=== PATIENT | male | born 1990 | race Caucasian/White ===

== ENCOUNTER 2018-01-23 18:20 | Emergency (ER) | payer BC, OTHER ==
[2018-01-23 19:37] LABS: ABS Basophils 0.1 10^3/ul (0-0.2); ABS Eosinophils 0 10^3/ul (0-0.6); ABS Lymphocytes 1.9 10^3/ul (1.0-4.8); ABS Monocytes 0.8 10^3/ul (0-0.8); ABS Neutrophils 12.8 10^3/ul (1.5-7.7); ABS Nucleated RBC 0 10^3/ul; Eosinophil % 0.1 %; Hematocrit 42 % (42-52); Hemoglobin 14.6 g/dl (14.0-18.0); Mean Corpuscular HGB Conc 35 g/dl (31-36); Mean Corpuscular Hemoglobin 32 pg (27-31); Mean Corpuscular Volume 91 fL (80-94); Nucleated Red Blood Cells % 0.2; Platelet Count 325 10^3/ul (150-450); Red Blood Count 4.57 10^6/ul (4.00-5.40); Red Cell Distribution Width 12 % (10.5-15); White Blood Count 15.6 10^3/ul (3.5-10.8)
--- NOTE | 2018-01-23 21:16 | ED ---
Lower Extremity - HPI Summary HPI Summary: Patient complains of fever, and left knee swelling, pain, redness starting Tuesday morning. Denies trauma, history of gout, fever, cough, sore throat, CP, SOB, N/V/D, abdominal pain, change in urine, change in BM. Medical history is none. Patient states he took Tylenol this morning. - History of Current Complaint Chief Complaint: EDExtremityLower Stated Complaint: LT KNEE SWOLLEN Time Seen by Provider: 01/23/18 18:39 Hx Obtained From: Patient Mechanism Of Injury: Unknown Onset of Pain: Days Onset/Duration: Days Severity Initially: Moderate Severity Currently: Moderate Pain Intensity: 6 Pain Scale Used: 0-10 Numeric Timing: Constant Location: Is Discrete @ Character Of Pain: Aching, Throbbing Associated Signs And Symptoms: Positive: Swelling, Knee Pain Aggravating Factor(s): Ambulation, Movement, Weight Bearing Alleviating Factor(s): Rest Able to Bear Weight: Yes - Allergies/Home Medications Allergies/Adverse Reactions: Allergies Allergy/AdvReac Type Severity Reaction Status Date / Time No Known Allergies Allergy Verified 05/18/12 14:42 PMH/Surg Hx/FS Hx/Imm Hx Endocrine/Hematology History: Denies: Hx Anticoagulant Therapy Cardiovascular History: Denies: Hx Cardiac Arrest History: Denies: Hx Dialysis Neurological History: Denies: Hx CVA Infectious Disease History: No Infectious Disease History: Denies: Traveled Outside the [place] in Last 30 Days - Social History Alcohol Use: Occasionally Substance Use Type: Reports: None Smoking Status (MU): Never Smoked Tobacco Review of Systems Positive: Fever Eyes: Negative ENT: Negative Cardiovascular: Negative Respiratory: Negative Gastrointestinal: Negative Genitourinary: Negative Positive: Arthralgia Skin: Negative Neurological: Negative Psychological: Normal All Other Systems Reviewed And Are Negative: Yes Physical Exam - Summary Physical Exam Summary: Positive erythema, extra warmth, swelling to the left knee. Positive peripatellar effusion. PMS intact distally. Full range of motion of left knee. Nontender. Triage Information Reviewed: Yes Vital Signs On Initial Exam: Initial Vitals Temp Pulse Resp BP Pulse Ox 102.8 F 124 16 141/82 96 01/23/18 18:22 01/23/18 18:22 01/23/18 18:22 01/23/18 18:22 01/23/18 18:22 Vital Signs Reviewed: Yes Appearance: Positive: Well-Appearing Skin: Positive: Warm Head/Face: Positive: Normal Head/Face Inspection Eyes: Positive: Normal Neck: Positive: Supple Respiratory/Lung Sounds: Positive: Clear to Auscultation Cardiovascular: Positive: Normal Abdomen Description: Positive: Nontender Musculoskeletal: Positive: Normal Neurological: Positive: Normal Psychiatric: Positive: Normal AVPU Assessment: Alert - Jeffery Coma Scale Best Eye Response: 4 - Spontaneous Best Motor Response: 6 - Obeys Commands Best Verbal Response: 5 - Oriented Coma Scale Total: 15 Diagnostics - Vital Signs Vital Signs Temp Pulse Resp BP Pulse Ox 01/23/18 18:45 111 97 01/23/18 18:22 102.8 F 124 16 141/82 96 - Laboratory Lab Results: Lab Results 01/23/18 01/23/18 01/23/18 Range/Units 19:08 19:08 19:08 WBC 15.6 H (3.5-10.8) 10^3/ul RBC 4.57 (4.00-5.40) 10^6/ul Hgb 14.6 (14.0-18.0) g/dl Hct 42 (42-52) % MCV 91 (80-94) fL MCH 32 H (27-31) pg MCHC 35 (31-36) g/dl RDW 12 (10.5-15) % Plt Count 325 (150-450) 10^3/ul MPV 8.0 (7.4-10.4) fL Neut % (Auto) 82.1 % Lymph % (Auto) 12.0 % [place] % (Auto) 5.1 % Eos % (Auto) 0.1 % Baso % (Auto) 0.7 % Absolute Neuts (auto) 12.8 H (1.5-7.7) 10^3/ul Absolute Lymphs (auto) 1.9 (1.0-4.8) 10^3/ul Absolute Monos (auto) 0.8 (0-0.8) 10^3/ul Absolute Eos (auto) 0 (0-0.6) 10^3/ul Absolute Basos (auto) 0.1 (0-0.2) 10^3/ul Absolute Nucleated RBC 0 10^3/ul Nucleated RBC % 0.2 ESR 59 H (0-14) mm/Hr Sodium 134 L (135-145) mmol/L Potassium 3.7 (3.5-5.0) mmol/L Chloride 100 L (101-111) mmol/L Carbon Dioxide 24 (22-32) mmol/L Anion Gap 10 (2-11) mmol/L BUN 14 (6-24) mg/dL Creatinine 1.02 (0.67-1.17) mg/dL Est GFR ( Amer) 107.7 (>60) Est GFR (Non-Af Amer) 89.0 (>60) BUN/Creatinine Ratio 13.7 (8-20) Glucose 185 H (70-100) mg/dL Lactic Acid 1.2 (0.5-2.0) mmol/L Calcium 9.7 (8.6-10.3) mg/dL Total Bilirubin 0.50 (0.2-1.0) mg/dL AST 12 L (13-39) U/L ALT 18 (7-52) U/L Alkaline Phosphatase 47 (34-104) U/L C-Reactive Protein 94.10 H (<8.01) mg/L Total Protein 7.6 (6.4-8.9) g/dL Albumin 4.5 (3.2-5.2) g/dL Globulin 3.1 (2-4) g/dL Albumin/Globulin Ratio 1.5 (1-3) Result Diagrams: 01/23/18 19:08 01/23/18 19:08 Lab Statement: Any lab studies that have been ordered have been reviewed, and results considered in the medical decision making process. Lower Extremity Course/Dx - Course Course Of Treatment: Patient complains of fever, and left knee swelling, pain, redness starting Tuesday morning. Denies trauma, history of gout, fever, cough, sore throat, CP, SOB, N/V/D, abdominal pain, change in urine, change in BM. Medical history is none. Patient states he took Tylenol this morning. Physical exam:Positive erythema, extra warmth, swelling to the left knee. Positive peripatellar effusion. PMS intact distally. Full range of motion of left knee. Nontender. Discussed patient with Dr. Castellon orthopedics regarding possibility of septic prepatellar bursitis. WBC 15.6.. ESR 59. CRP 94. Fever of 102.8. Tachycardic up to 124. X-ray negative. Patient has full range of motion and is ambulatory. Dr. Castellon offered 2 options: Admit to her if patient looked bad, and if patient appeared stable discharge after Ancef and Toradol with follow-up in clinic tomorrow and prescription for Bactrim. Patient no longer febrile, heart rate around 103, otherwise looks very healthy. Patient agreed to follow up in clinic with Dr. Castellon tomorrow and to take Bactrim. Patient understands and approves of plan. - Diagnoses Provider Diagnoses: Prepatellar bursitis Discharge - Sign-Out/Discharge Documenting (check all that apply): Patient Departure - Discharge Plan Condition: Stable Disposition: HOME Prescriptions: Ibuprofen 800 mg PO TID 7 Days #21 tablet Sulfamethox/Trimethoprim DS* [Bactrim DS 800/160 TAB*] 1 tab PO BID 7 Days #14 tab Patient Education Materials: Knee Bursitis (ED) Referrals: Tong Billings MD [Primary Care Provider] - Guille Castellon MD [Medical Doctor] - Additional Instructions: Rest left knee. Take ibuprofen 800mg three times a day. Take antibiotics as directed. Follow-up with Dr. Castellon orthopedics in clinic tomorrow. Return to the ED for any new or worsening symptoms - Billing Disposition and Condition Condition: STABLE Disposition: Home
[2018-01-23] MEDS ORDERED: ceFAZolin 500 MG VIAL(*) 500 MG VIAL IM ONE (21:26)
[2018-01-23] MEDS ORDERED: Ketorolac INJ* 60 MG/2 ML VIAL IM ONE (21:27)
[2018-01-23] MEDS ORDERED: Ketorolac INJ* 30 MG/ML 1 ML VIAL IV ONE (22:08)
[2018-01-23 22:18] VITALS: BP 129/76
== END 2018-01-23 22:18 | disposition home or self-care (01) ==
LOC: ED 18:20
DX: M70.42 Prepatellar bursitis, left knee (principal)
CPT/HCPCS: 36415; 80053; 83605; 85025; 85652; 86140; 86618; 87040; 96372; 96374; 99283; J0690; J1885

== ENCOUNTER 2018-01-26 22:36 | Emergency (ER) | payer BC ==
[2018-01-26] MEDS ORDERED: Lidocaine 2% W/EPI 1:100,000* 20 ML MDV INJ ONE (23:51)
--- NOTE | 2018-01-26 23:51 | ED ---
Lower Extremity - HPI Summary HPI Summary: A 27 y/o male accompanied by family presents to ED c/o knee pain. Currently, the patient is experiencing left knee pain reaching 4/10 in severity. As per triage, "Patient reports left knee pain and swelling. Patient reports [facility] then here for same and given ABX. Patient states pain/swelling improved then became worse". According to the patient, the pain started last Tuesday. He came into [facility] on Tuesday night where he was discharged and diagnosed with Prepatellar bursitis. He followed up with Orthopedics and agreed with the diagnosis. He was placed on Bactrim antibiotics, however, he stated that today it has been swelling up much more and has exhibited a fever the past couple nights. Additionally, there is more erythema. He has been on Bactrim for 3 days. He denies any injury. - History of Current Complaint Chief Complaint: EDExtremityLower Stated Complaint: LT KNEE PAIN Time Seen by Provider: 01/26/18 23:36 Hx Obtained From: Patient Mechanism Of Injury: Unknown Onset of Pain: Immediate Onset/Duration: Still Present Severity Initially: Moderate Severity Currently: Moderate Pain Intensity: 4 Pain Scale Used: 0-10 Numeric Timing: Constant, Lasting Days Location: Is Discrete @ - LEFT KNEE Associated Signs And Symptoms: Positive: Swelling, Redness, Knee Pain Aggravating Factor(s): Other - PALPATION Alleviating Factor(s): Nothing - Allergies/Home Medications Allergies/Adverse Reactions: Allergies Allergy/AdvReac Type Severity Reaction Status Date / Time No Known Allergies Allergy Verified 05/18/12 14:42 PMH/Surg Hx/FS Hx/Imm Hx Endocrine/Hematology History: Denies: Hx Anticoagulant Therapy Cardiovascular History: Denies: Hx Cardiac Arrest History: Denies: Hx Dialysis Neurological History: Denies: Hx CVA - Surgical History Surgery Procedure, Year, and Place: no prior surgeries. Infectious Disease History: No Infectious Disease History: Denies: Traveled Outside the [place] in Last 30 Days - Family History Known Family History: Negative: Hypertension - Social History Alcohol Use: Occasionally Substance Use Type: Reports: None Smoking Status (MU): Never Smoked Tobacco Review of Systems Negative: Fever Positive: Other - POSITIVE: LEFT KNEE PAIN Positive: Other - POSITIVE: SWELLING AND ERYTHEMA OF LEFT KNEE All Other Systems Reviewed And Are Negative: Yes Physical Exam - Summary Physical Exam Summary: Appearance: Well appearing, no pain distress Skin: warm, dry, reflects adequate perfusion. Head/face: normal Eyes: EOMI, VEL ENT: normal Neck: supple, non-tender Respiratory: CTA, breath sounds present Cardiovascular: RRR, pulses symmetrical Abdomen: non-tender, soft Musculoskeletal: normal, strength/ROM intact. Tenderness, swelling, and erythema in right knee. No neurovascular deficit. Neuro: normal, sensory motor intact, A&Ox3 Triage Information Reviewed: Yes Vital Signs On Initial Exam: Initial Vitals Temp Pulse Resp BP Pulse Ox 97.3 F 92 20 144/75 97 01/26/18 22:38 01/26/18 22:38 01/26/18 22:38 01/26/18 22:38 01/26/18 22:38 Vital Signs Reviewed: Yes Diagnostics - Vital Signs Vital Signs Temp Pulse Resp BP Pulse Ox 01/26/18 22:38 97.3 F 92 20 144/75 97 - Laboratory Result Diagrams: 01/26/18 23:58 01/26/18 23:58 Lab Statement: Any lab studies that have been ordered have been reviewed, and results considered in the medical decision making process. - Radiology KNEE XR Radiology Interpretation Completed By: ED Physician - NO FRACTURE. PENDING OFFICIAL REPORT. Lower Extremity Course/Dx - Course Course Of Treatment: A 27 y/o male accompanied by family presents to ED c/o knee pain. Currently, the patient is experiencing left knee pain reaching 4/10 in severity. As per triage, "Patient reports left knee pain and swelling. Patient reports being [facility] here for same and given ABX. Patient states pain/swelling improved then became worse". According to the patient, the pain started last Tuesday. He came into [facility] on Tuesday night where he was discharged and diagnosed with Prepatellar bursitis. He followed up with Orthopedics and agreed with the diagnosis. He was placed on Bactrim antibiotics , however, he stated that today it has been swelling up much more and has exhibited a fever the past couple nights. Additionally, there is more erythema. He has been on Bactrim for 3 days. He denies any injury. Physical exam revealed tenderness, swelling, and erythema in right knee. No neurovascular deficit. A knee XR revealed no fracture. Hematology and Chemistry was done. Labs significant for WBC 13.3, Hgb 13.9, MCH 32, Hct 40, and Glucose 105. In the ED course, the patient recieved Lidocaine and Xylocaine. Patient will be discharged with a diagnosis of Prepatellar Bursitis and knee pain. No indication for a tap at present. wbc is trending down. advised to follow up with ortho in the morning anfd follow their recommendations. - Diagnoses Differential Diagnosis/HQI/PQRI: Positive: Bursitis, Cellulitis Provider Diagnoses: Prepatellar bursitis, Knee pain Discharge - Sign-Out/Discharge Documenting (check all that apply): Patient Departure - DISCHARGE - Discharge Plan Condition: Stable Disposition: HOME Patient Education Materials: Knee Pain (ED) Referrals: Tong Billings MD [Primary Care Provider] - 3 Days Cha Hartmann MD [Medical Doctor] - 3 Days Additional Instructions: FOLLOW UP WITH ORTHOPEDICS IN 2-3 DAYS RETURN TO ED FOR ANY NEW OR WORSENING SYMPTOMS. - Billing Disposition and Condition Condition: STABLE Disposition: Home - Attestation Statements Document Initiated by Michelle: Yes Documenting Scribe: Torsten Mooney Provider For Whom Michelle is Documenting (Include Credential): Eugene Dickinson MD Scribe Attestation: Torsten Stapleton scribed for Eugene Dickinson MD on 01/27/18 at 0147. Scribe Documentation Reviewed: Yes Provider Attestation: The documentation as recorded by the Torsten hook accurately reflects the service I personally performed and the decisions made by , Eugene Dickinson MD Status of Scribe Document: Viewed
[2018-01-27] MEDS ORDERED: Lidocaine 2% EPI 1:200000 MPF*10-20 ML VIAL ONE (00:02)
[2018-01-27 00:06] LABS: ABS Basophils 0.1 10^3/ul (0-0.2); ABS Eosinophils 0.1 10^3/ul (0-0.6); ABS Lymphocytes 3.1 10^3/ul (1.0-4.8); ABS Monocytes 1.2 10^3/ul (0-0.8); ABS Neutrophils 8.9 10^3/ul (1.5-7.7); ABS Nucleated RBC 0 10^3/ul; Eosinophil % 1.1 %; Hematocrit 40 % (42-52); Hemoglobin 13.9 g/dl (14.0-18.0); Lymphocyte % 23.1 %; Mean Corpuscular HGB Conc 35 g/dl (31-36); Mean Corpuscular Hemoglobin 32 pg (27-31); Mean Corpuscular Volume 91 fL (80-94); Mean Platelet Volume 7.4 fL (7.4-10.4); Nucleated Red Blood Cells % 0; Platelet Count 418 10^3/ul (150-450); Red Blood Count 4.39 10^6/ul (4.00-5.40); Red Cell Distribution Width 12 % (10.5-15); White Blood Count 13.3 10^3/ul (3.5-10.8)
[2018-01-27 00:15] LABS: INR 1.11 (0.77-1.02)
[2018-01-27 00:23] LABS: EGFR Non-African American 83.3 (>60)
[2018-01-27 01:39] VITALS: BP 138/84
== END 2018-01-27 01:38 | disposition home or self-care (01) ==
LOC: ED 22:36
DX: M70.42 Prepatellar bursitis, left knee (principal)
CPT/HCPCS: 36415; 80053; 85025; 85610; 85730; 87040; 99282

== ENCOUNTER 2018-01-27 09:42 | Inpatient (IN) | payer BC ==
--- OUTSIDE RECORDS SUMMARY | 2018-01-27 10:00 | XMS REPORT | Continuity of Care Document ---
:1990 External Reference #:[id number] Author Name Kanwal Ely Care Team Providers Name Role Phone Tong Billings MD Primary Care Physician Unavailable Payers Type Date Identification Numbers Payment Provider Subscriber Policy Number: [id number] [employer] Santhosh Beatty PayID: [id number] [address] [address] [place] [address] Advance Directives Description No Information Available Problems Description No Information Family History Date Family Member(s) Problem(s) Comments General No Current Problems Social History Type Date Description Comments Sex Unknown Lives With Spouse 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 ETOH Use Currently consumes alcohol Tobacco Use Start: Unknown Patient has never smoked Smoking Status Reviewed: 01/24/18 Patient has never smoked Exercise Type/Frequency Negative For Exercises regularly Allergies, Adverse Reactions, Alerts Description No Known Drug Allergies Medications Description No Active Medications Immunizations Description No Information Available Vital Signs Date Vital Result Comment 01/24/2018 11:03am Height 70 inches 5'10" Weight 240.25 lb Heart Rate 88 /min BP Systolic Sitting 102 mmHg BP Diastolic Sitting 78 mmHg Body Temperature 99.3 F Pain Level 1 BMI (Body Mass Index) 34.5 kg/m2 Results Description No Information Available Procedures Description No Information Available Encounters Description No Information Available Plan of Treatment 01/24/2018 - Guille Castellon, [id number] Prepatellar bursitis, left kneeFollow up: Follow up: Tuesday or
--- OUTSIDE RECORDS SUMMARY | 2018-01-27 10:00 | XMS REPORT | Continuity of Care Document ---
:1990 External Reference #:[id number] Author Name Christine Godinez Care Team Providers Name Role Phone Tong Billings MD Primary Care Physician Unavailable Payers Type Date Identification Numbers Payment Provider Subscriber Policy Number: [id number] [employer] Santhosh Beatty PayID: [id number] [address] [address] [place] [address] Advance Directives Description No Information Available Problems Description No Information Family History Date Family Member(s) Problem(s) Comments General No Current Problems Social History Type Date Description Comments Sex Unknown Lives With Spouse 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 No Active 01/25/20 Hx Unknown Medications - 01/28/20 18 Bactrim Hx Tablets 400-80mg once a day Unknown - 01/27/20 18 Immunizations Description No Information Available Vital Signs Date Vital Result Comment 01/27/2018 8:51am Height 70 inches 5'10" Heart Rate 88 /min BP Systolic 118 mmHg BP Diastolic 70 mmHg Body Temperature 99.8 F Pain Level 4 01/24/2018 11:03am Height 70 inches 5'10" Weight 240.25 lb Heart Rate 88 /min BP Systolic Sitting 102 mmHg BP Diastolic Sitting 78 mmHg Body Temperature 99.3 F Pain Level 1 BMI (Body Mass Index) 34.5 kg/m2 Results Description No Information Available Procedures Date Code Description Status 01/27/2018 Inject/Drain Joint/Bursa Major W/O US Completed Encounters Description No Information Available Plan of Treatment Future Appointment(s):01/31/2018 11:15 am - Guille Castellon MD at [facility].01/27/2018 - Guille Castellon, [id number] Prepatellar bursitis, left kneeFollow up:Follow up: at [id number] Cellulitis of left lower limbNew Labs:Body Fluid C&S, Ordered: 01/27/18ungal Cult Other Sources, Ordered: 01/27/18
[2018-01-27] MEDS ORDERED: Ondansetron INJ* 2 MG/ML VIAL IV PRN (10:52)
[2018-01-27] MEDS ORDERED: Vancomycin per Pharmacy* NOTE FOLLOW UP PRN (11:16)
[2018-01-27 11:34] LABS: ABS Basophils 0.1 10^3/ul (0-0.2); ABS Eosinophils 0.1 10^3/ul (0-0.6); ABS Lymphocytes 2.2 10^3/ul (1.0-4.8); ABS Neutrophils 9.3 10^3/ul (1.5-7.7); ABS Nucleated RBC 0 10^3/ul; Eosinophil % 0.7 %; Hematocrit 39 % (42-52); Hemoglobin 13.7 g/dl (14.0-18.0); Lymphocyte % 17.3 %; Mean Corpuscular HGB Conc 35 g/dl (31-36); Mean Corpuscular Hemoglobin 32 pg (27-31); Mean Corpuscular Volume 91 fL (80-94); Mean Platelet Volume 7.1 fL (7.4-10.4); Nucleated Red Blood Cells % 0; Platelet Count 376 10^3/ul (150-450); Red Blood Count 4.27 10^6/ul (4.00-5.40); Red Cell Distribution Width 13 % (10.5-15); White Blood Count 12.6 10^3/ul (3.5-10.8)
[2018-01-27] MEDS ORDERED: Vancomycin(*) 1,750 MG in NS 0.9% 500 ML* 500 ML IVPB ONE (12:00)
[2018-01-27] MEDS ORDERED: HYDROcodone/ACETAMIN 5-325 MG* 1 TAB PO PRN (12:29)
--- NOTE | 2018-01-27 13:06 | HP ---
AMENDED REPORT NOW INCLUDES DESIGNATED COSIGNER ADMISSION HISTORY AND PHYSICAL: DATE OF ADMISSION: 01/27/18 ATTENDING PHYSICIAN: Dr. Castellon.* (DICTATED BY KEE FRANKLIN) CHIEF COMPLAINT: Left anterior knee pain and swelling. 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 He states that around he developed some swelling, redness, and pain to the anterior aspect of his knee, but thought it was just irritated, but by the weekend had more pain and had developed fever and chills and presented to the [facility] on in which he was sent to the emergency department for evaluation where he received IV Ancef. He did feel that there was some improvement in his pain and his vital signs were stable. He was therefore discharged on Bactrim DS 800/160 mg p.o. b.i.d. for 7 days and instructed to follow up with Dr. Castellon in the office. He states that his pain, swelling, and redness did not improve significantly. He was seen in the office by Dr. Castellon this morning, 01/27/18, where he underwent aspiration of the prepatellar bursa of the left knee and admitted to the hospital for IV antibiotics and further workup. The patient has not had recent fever or chills within the last 24 hours. Otherwise, he feels well. He has not had any recent illnesses. He denies other constitutional symptoms at the time of his admission. PAST MEDICAL HISTORY: Benign with no prior medical problems. MEDICATIONS: He takes no regular medications, but has been taking ibuprofen 800 mg 2 to 3 times daily for the knee pain and recently as above was on the Bactrim DS b.i.d. ALLERGIES: He denies any known drug allergies. 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 He lives with his girlfriend. He drinks very minimally, maybe 6 drinks per week. No illicit drug use. He does not use tobacco products. REVIEW OF SYSTEMS: He has had some fever and chills within the last several days, but denies fever or chills upon admission currently. He denies loss of consciousness, lightheadedness, dizziness, shortness of breath, chest pain, palpitations, gastrointestinal or genitourinary symptoms. PHYSICAL EXAMINATION GENERAL: He is pleasant and cooperative, alert and oriented x3, in no acute distress. VITAL SIGNS: Temperature is 98.6, pulse 86, respiratory rate 16, O2 sat 98% on room air, blood pressure 154/67. HEENT: Pupils equal, round, reactive to light. EOMI. NECK: Supple, nontender. No masses. LUNGS: Clear to auscultation. HEART: Regular rate and rhythm. No murmur auscultated. ABDOMEN: Soft and nontender. Normoactive bowel sounds x4 quadrants. EXTREMITIES: Upper extremities within normal limits. Lower extremities: Left lower extremity showed some prepatellar swelling and mild erythema, mild warmth. Minimal tenderness to palpation. His motion is limited to about 90 degrees of flexion, limited by anterior swelling and pain. His calf is soft and nontender. He has active dorsiflexion of his left ankle. He has active straight leg raise. His pedal pulse is 2+ distally. LABORATORY DATA: Recent laboratory studies drawn this morning, 01/27/18, indicated elevated white count of 12.6, hemoglobin 13.7, hematocrit 39. His C- reactive protein is elevated at 114.72, which has increased from 94.10 on 01/23/18. ESR pending. IMPRESSION: Infected prepatellar bursa, left knee. PLAN: The patient is admitted to the service of Dr. Castellon. He is currently n.p.o. awaiting culture results. Vancomycin is started upon admission. He may require I and D. Definitive plan to be determined by Dr. Castellon. KEE FRANKLIN [id number]/[facility] #: [id number] MIMI
[2018-01-27] MEDS: Ibuprofen TAB* 800 MG PO SCH ×2 (14:14→19:49)
[2018-01-27] MEDS: Vancomycin(*) 1,250 MG in NS 0.9% 250 ML* 250 ML IVPB SCH (18:58)
--- NOTE | 2018-01-27 22:14 | CONS ---
CONSULTATION REPORT: DATE OF CONSULT: 01/27/18 TIME OF CONSULTATION: 10 o'clock a.m. CONSULTING SERVICE: Orthopedic Surgery. CHIEF COMPLAINT: Left knee pain. HISTORY OF PRESENT ILLNESS: This is a 27-year-old man with no medical history, who was admitted to the orthopedic surgery service this morning for prepatellar bursitis with cellulitis. He has first noticed swelling last Tuesday when he went to work, but he did not take much of it. He worked through the day and continued to work, but on Tuesday, the swelling and pain got worse, so he went to [facility], who sent him to the ED that was on 01/23/18 and he was discharged with Bactrim. Then, on 01/26/18, he went to see Dr. Castellon in the office and she was concerned that the erythema was worsening, so she sent him to the hospital for IV antibiotics having failed Bactrim. Santhosh reports fevers at home up to 101.1 on Tuesday and again yesterday, he has been taking ibuprofen for pain. He has been able to walk and he has continued to work until yesterday. 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 PAST MEDICAL HISTORY: None. PAST SURGICAL HISTORY: None. ALLERGIES: None. FAMILY HISTORY: Diabetes in his grandparents. SOCIAL HISTORY: He does not smoke cigarette. He drinks about 6 beers per week. He works at [employer] as a greenhouse technician. He uses no illicit drugs. REVIEW OF SYSTEMS: He notes the fever, knee pain and swelling, and cough. Remainder of the 14-point review of systems is negative. PHYSICAL EXAM: Temperature 98.6, heart rate 86, respiratory rate 16, pulse ox 98% on room air, and blood pressure 154/67. General: Alert, well-appearing young man, in no distress. He is nontoxic appearing. HEENT: Pupils are 3 mm bilaterally, reactive to light. Oral mucosa is moist. Neck: No JVP. No cervical adenopathy. Chest: Regular rate and rhythm. No murmurs. PMI is nondisplaced. Lungs are clear bilaterally. Abdomen: Soft, nontender, and nondistended. Extremities: His left knee is edematous. He has full active passive range of motion and he has an arch of erythema superior to the patella with tenderness to palpation on the patella and with movement of the patella. His distal pulses are 2+. There is no other skin lesions or ulcers. DIAGNOSTIC STUDIES/LAB DATA: White blood cell 12.6, hemoglobin 13.7, platelets 376. Sodium 134, potassium 3.7, chloride 100. Creatinine 1.02. Glucose 185. CRP 114. Lactic acid 1.2. Lyme serology is negative. ASSESSMENT AND PLAN: This is a 27-year-old man with no past medical history, who presents with prepatellar bursitis and worsening cellulitis from the orthopedic office. 1. Left knee cellulitis. I do not believe the joint is involved as he has good range of motion, although he has failed outpatient Bactrim. I recommended starting vancomycin and checking blood cultures. The fluid has been sent to the micro lab and we will follow up on this and hope to adjust antibiotics as indicated. He does not currently meet sepsis criteria. 2. Prepatellar bursitis. Defer management to Orthopedic Surgery. 3. Hyperglycemia. I am adding on hemoglobin A1c. 4. Left leg swelling. This is not surprising in the setting of prepatellar bursitis and cellulitis, however, I think it is worthwhile to pursue a Doppler. 5. DVT prophylaxis. He is ambulatory. Thank you for allowing me to participate in the care of this patient. We will follow along with you. [id number]/[facility] #: [id number] MIMI
[2018-01-28] MEDS: Vancomycin(*) 1,250 MG in NS 0.9% 250 ML* 250 ML IVPB SCH ×3 (01:47→18:34)
[2018-01-28] MEDS: Ibuprofen TAB* 800 MG PO SCH ×3 (08:36→21:31)
--- NOTE | 2018-01-28 09:43 | PN ---
Subjective Date of Service: 01/28/18 Interval History: Mr. Beatty feels pretty good today. He has been afebrile. He thinks the range of motion is about the same in his left knee. He hasn't been requiring pain meds. Objective Active Medications: Hydrocodone Bitart/Acetaminophen ([place] 5-325 Tab*) 1 tab PO Q4H PRN PRN Reason: PAIN Lactated Ringer's (Lactated Ringers 1000 Ml Bag*) 1,000 mls @ 100 mls/hr IV PER RATE [facility] Last Admin: 01/28/18 01:47 Dose: 100 mls/hr Vancomycin HCl 1,250 mg/ (Sodium Chloride) 250 mls @ 166.667 mls/hr IVPB Q8H [facility] Last Admin: 01/28/18 01:47 Dose: 166.667 mls/hr Ibuprofen (Motrin Tab*) 800 mg PO TID [facility] Last Admin: 01/28/18 08:36 Dose: Not Given Ondansetron HCl (Zofran Inj*) 4 mg IV Q6H PRN PRN Reason: NAUSEA Pharmacy Consult (Vancomycin Per Pharmacy*) 1 note FOLLOW UP . PRN PRN Reason: PER PROTOCOL Pharmacy Profile Note (Vancomycin Trough Check) 1 note FOLLOW UP 1730 ONE Stop: 01/28/18 17:31 Vital Signs - 8 hr 01/28/18 01/28/18 01/28/18 03:47 07:30 08:40 Temperature 97.8 F 98.2 F Pulse Rate 66 89 Respiratory 16 18 16 Rate Blood Pressure 124/61 126/79 (mmHg) O2 Sat by Pulse 100 99 Oximetry Oxygen Devices in Use Now: None Appearance: alert, well appearing young man Eyes: No Scleral Icterus Ears/Nose/Mouth/Throat: NL Teeth, Lips, Gums, - - no palatal petechiae Neck: NL Appearance and Movements; NL JVP Respiratory: Symmetrical Chest Expansion and Respiratory Effort, Clear to Auscultation Cardiovascular: NL Sounds; No Murmurs; No JVD Abdominal: NL Sounds; No Tenderness; No Distention Lymphatic: No Cervical Adenopathy Extremities: - - left knee with an arch of erythema superior to the patella, range of motion to about 100 degrees Result Diagrams: 01/27/18 11:24 Assess/Plan/Problems-Billing Assessment: Mr. Reynolds is a 27 year old man who presented to urgent care with knee pain, was transferred to the ED, and has been diagnosed with prepatellar bursitis and overlying cellulitis - Patient Problems (1) Cellulitis Current Visit: Yes Status: Acute Code(s): L03.90 - CELLULITIS, UNSPECIFIED SNOMED Code(s): 640644736 Comment: smear from joint fluid is showing staph aureus; culture pending whether MRSA or MSSA I recommend continuing vanc for now, which has good staph coverage and there are good PO options when ready to switch, but I would hope for more improvement in his range of motion prior to swiching to PO I see no peripheral stimata concerning for bacteremia or endocarditis I defer surgical plans to Dr. Castellon for a washout vs. abx therapy only (2) Prepatellar bursitis Current Visit: Yes Status: Acute Code(s): M70.40 - PREPATELLAR BURSITIS, UNSPECIFIED KNEE SNOMED Code(s): 20732066 Status and Disposition: inpatient for IV antibiotics and possible surgical washout
[2018-01-28 10:34] LABS: ABS Basophils 0.1 10^3/ul (0-0.2); ABS Eosinophils 0.2 10^3/ul (0-0.6); ABS Monocytes 0.7 10^3/ul (0-0.8); ABS Neutrophils 7.8 10^3/ul (1.5-7.7); ABS Nucleated RBC 0 10^3/ul; Eosinophil % 1.9 %; Hematocrit 39 % (42-52); Hemoglobin 13.5 g/dl (14.0-18.0); Lymphocyte % 18.2 %; Mean Corpuscular HGB Conc 35 g/dl (31-36); Mean Corpuscular Hemoglobin 32 pg (27-31); Mean Corpuscular Volume 92 fL (80-94); Mean Platelet Volume 7.7 fL (7.4-10.4); Nucleated Red Blood Cells % 0; Platelet Count 381 10^3/ul (150-450); Red Blood Count 4.24 10^6/ul (4.00-5.40); Red Cell Distribution Width 12 % (10.5-15); White Blood Count 10.7 10^3/ul (3.5-10.8)
--- NOTE | 2018-01-28 11:36 | PN ---
Progress Note - Progress Note Date of Service: 01/28/18 SOAP: Subjective: Patient is doing well. He does have some pain. able to move knee. Swelling and redness improved. Denies CP/SOB, F/C or calf pain Objective: PE- 27 y/o WDWN, A&Ox3 LLE- erythema and swelling of the left pre patellar bursa improved, mildly tender to palpation, able to flex and extend knee, calf soft NT, full ROM ankle , NVI Vital Signs Temp Pulse Resp BP Pulse Ox 98.2 F 89 16 126/79 99 01/28/18 07:30 01/28/18 07:30 01/28/18 08:40 01/28/18 07:30 01/28/18 07:30 Laboratory Results - last 24 hr 01/27/18 01/27/18 01/27/18 11:24 11:24 11:24 WBC RBC Hgb Hct MCV MCH MCHC RDW Plt Count MPV Neut % (Auto) Lymph % (Auto) [place] % (Auto) Eos % (Auto) Baso % (Auto) Absolute Neuts (auto) Absolute Lymphs (auto) Absolute Monos (auto) Absolute Eos (auto) Absolute Basos (auto) Absolute Nucleated RBC Nucleated RBC % ESR 88 H Hemoglobin A1c 5.2 C-Reactive Protein 114.72 H 01/28/18 01/28/18 10:08 10:08 WBC 10.7 RBC 4.24 Hgb 13.5 L Hct 39 L MCV 92 MCH 32 H MCHC 35 RDW 12 Plt Count 381 MPV 7.7 Neut % (Auto) 72.9 Lymph % (Auto) 18.2 [place] % (Auto) 6.3 Eos % (Auto) 1.9 Baso % (Auto) 0.7 Absolute Neuts (auto) 7.8 H Absolute Lymphs (auto) 2.0 Absolute Monos (auto) 0.7 Absolute Eos (auto) 0.2 Absolute Basos (auto) 0.1 Absolute Nucleated RBC 0 Nucleated RBC % 0 ESR 87 H Hemoglobin A1c C-Reactive Protein 100.61 H Assessment: Left knee prepatellar bursitis/cellulitis Plan: Labs and symptoms improving Ok to eat No need for washout today since is responding to abx, will cont to monitor ibuprofen prn pain Awaiting cultures Possible DC tomorrow if doing well
--- NOTE | 2018-01-28 11:42 | PN ---
Progress Note - Progress Note Date of Service: 01/28/18 Note: Pt seen and examined. Doing well. MSSA from aspirate with hematoma. Will continue IV abx for now. Possible discharge home tomorrow.
[2018-01-28] MEDS ORDERED: Vancomycin Trough Check NOTE FOLLOW UP ONE (17:30)
[2018-01-29] MEDS: Vancomycin(*) 1,250 MG in NS 0.9% 250 ML* 250 ML IVPB SCH ×3 (02:22→17:23)
--- NOTE | 2018-01-29 08:15 | PN ---
Progress Note - Progress Note Date of Service: 01/29/18 Note: Pt seen and examined. Feeling better. Afebrile. Swelling decreased. No CP, SOB. Temp Pulse Resp BP Pulse Ox 97.8 F 65 18 114/67 100 01/29/18 04:01 01/29/18 04:01 01/29/18 07:18 01/29/18 04:01 01/29/18 04:01 NAD. LLE: Skin intact. ROM 0-130. Less tender. Redness resolving slowly. Calf soft and nontender. Sensate to light touch grossly distally. brisk cap refill. Laboratory Results - last 24 hr 01/28/18 01/28/18 01/28/18 10:08 10:08 17:40 WBC 10.7 RBC 4.24 Hgb 13.5 L Hct 39 L MCV 92 MCH 32 H MCHC 35 RDW 12 Plt Count 381 MPV 7.7 Neut % (Auto) 72.9 Lymph % (Auto) 18.2 [place] % (Auto) 6.3 Eos % (Auto) 1.9 Baso % (Auto) 0.7 Absolute Neuts (auto) 7.8 H Absolute Lymphs (auto) 2.0 Absolute Monos (auto) 0.7 Absolute Eos (auto) 0.2 Absolute Basos (auto) 0.1 Absolute Nucleated RBC 0 Nucleated RBC % 0 ESR 87 H C-Reactive Protein 100.61 H Vancomycin Trough 10.4 A/P 27 yo with prepatellar bursitis failed oral meds admitted for IV meds. Doing well awaiting cultures to be d/c'd on oral abx WBAT will follow in office at end of this week potential D/C home today
[2018-01-29] MEDS: Ibuprofen TAB* 800 MG PO SCH ×2 (09:26→14:19)
--- NOTE | 2018-01-29 13:19 | PN ---
Subjective Date of Service: 01/29/18 Interval History: Improving. He feels better. He has no complaints. Improved range of motion, little pain. No fevers. Objective Active Medications: Hydrocodone Bitart/Acetaminophen ([place] 5-325 Tab*) 1 tab PO Q4H PRN PRN Reason: PAIN Lactated Ringer's (Lactated Ringers 1000 Ml Bag*) 1,000 mls @ 100 mls/hr IV PER RATE [facility] Last Admin: 01/28/18 15:09 Dose: 100 mls/hr Vancomycin HCl 1,250 mg/ (Sodium Chloride) 250 mls @ 166.667 mls/hr IVPB Q8H [facility] Last Admin: 01/29/18 09:26 Dose: 166.667 mls/hr Ibuprofen (Motrin Tab*) 800 mg PO TID [facility] Last Admin: 01/29/18 09:26 Dose: 800 mg Ondansetron HCl (Zofran Inj*) 4 mg IV Q6H PRN PRN Reason: NAUSEA Pharmacy Consult (Vancomycin Per Pharmacy*) 1 note FOLLOW UP . PRN PRN Reason: PER PROTOCOL Vital Signs - 8 hr 01/29/18 01/29/18 01/29/18 07:18 07:29 11:09 Temperature 98.0 F 98.6 F Pulse Rate 66 83 Respiratory 18 18 16 Rate Blood Pressure 124/72 132/74 (mmHg) O2 Sat by Pulse 99 98 Oximetry Oxygen Devices in Use Now: None Appearance: alert well appearing nontoxic young man Eyes: No Scleral Icterus Ears/Nose/Mouth/Throat: NL Teeth, Lips, Gums Neck: NL Appearance and Movements; NL JVP Respiratory: Symmetrical Chest Expansion and Respiratory Effort Cardiovascular: NL Sounds; No Murmurs; No JVD, RRR Abdominal: NL Sounds; No Tenderness; No Distention Lymphatic: No Cervical Adenopathy Extremities: No Edema Skin: - - left knee edema, arch of erythema superior to bursa Neurological: Alert and Oriented x 3 Result Diagrams: 01/28/18 10:08 Assess/Plan/Problems-Billing Assessment: Mr. Reynolds is a 27 year old man who presented to urgent care with knee pain, was transferred to the ED, and has been diagnosed with prepatellar bursitis and overlying cellulitis - Patient Problems (1) Cellulitis Current Visit: Yes Status: Acute Code(s): L03.90 - CELLULITIS, UNSPECIFIED SNOMED Code(s): 564169852 Comment: improving on IV vanc. cx show MSSA which is pansensitive clinda, doxy, or augmentin would be good choices for him. my preferences would be augmentin or doxy for 10 days total (end date 02/05) (2) Prepatellar bursitis Current Visit: Yes Status: Acute Code(s): M70.40 - PREPATELLAR BURSITIS, UNSPECIFIED KNEE SNOMED Code(s): 75189100 Status and Disposition: inpatient for IV antibiotics and possible surgical washout
[2018-01-29 17:26] VITALS: BP 140/77
== END 2018-01-29 18:40 | disposition home or self-care (01) | DRG 351 ==
LOC: SSU 09:56
PROVIDERS: ADMIT Orthopaedic Surgery; ATTEND Orthopaedic Surgery
DX: M71.162 Other infective bursitis, left knee (principal); L03.116 Cellulitis of left lower limb; B95.61 Methicillin susceptible Staphylococcus aureus infection as the cause of diseases classified elsewhere; R73.9 Hyperglycemia, unspecified; Z83.3 Family history of diabetes mellitus
CPT/HCPCS: 36415; 80202; 83036; 85025; 85652; 86140; A9270-GY; J3370

== ENCOUNTER 2019-03-12 18:16 | Emergency (ER) | payer BC ==
[2019-03-12 19:16] LABS: ABS Basophils 0.1 10^3/ul (0-0.2); ABS Eosinophils 0.3 10^3/ul (0-0.6); ABS Lymphocytes 3.7 10^3/ul (1.0-4.8); ABS Monocytes 0.6 10^3/ul (0-0.8); ABS Neutrophils 6.1 10^3/ul (1.5-7.7); Eosinophil % 2.4 %; Hematocrit 44 % (42-52); Hemoglobin 15.7 g/dL (14.0-18.0); Lymphocyte % 34.3 %; Mean Corpuscular HGB Conc 35 g/dL (31-36); Mean Corpuscular Hemoglobin 33 pg (27-31); Mean Corpuscular Volume 92 fL (80-94); Nucleated Red Blood Cells % 0.1; Platelet Count 281 10^3/uL (150-450); Red Cell Distribution Width 12 % (10-15); White Blood Count 10.7 10^3/uL (3.5-10.8)
[2019-03-12 19:27] LABS: Albumin 4.8 g/dL (3.2-5.2); Albumin/Globulin Ratio 1.8 (1-3); BUN/Creatinine Ratio 14.4 (8-20); Calcium 9.6 mg/dL (8.6-10.3); EGFR African American 113.2 (>60); EGFR Non-African American 93.6 (>60); Globulin 2.7 g/dL (2-4); Potassium 4.1 mmol/L (3.5-5.0); Total Bilirubin 0.5 mg/dL (0.2-1.0); Total Protein 7.5 g/dL (6.4-8.9)
[2019-03-12 19:28] LABS: Troponin I 0.01 ng/mL (<0.03)
[2019-03-12 19:31] LABS: INR 0.99 (0.82-1.09)
--- NOTE | 2019-03-12 19:56 | ED ---
HPI Chest Pain - HPI Summary HPI Summary: 28 year old male presents with chest pain on Tuesday. He states that he was having sex and ended up loosing his erection when he developed the chest pain. States it was sharp on the left side of his chest. the chest pain lasted an hour. Denies any shortness breath. did not change when he took a deep breath. He states he was sick with a cold about a week ago. States that he is not having any cough. No nausea vomiting. No abdominal pain. He does not currently have a chest pain. He has not had in 2 days. He states that he has been loosing his erection for the past months. Denies any urinary symptoms. No testicular pain. No flank pain. Is not on any medications. Has no medical conditions. Does have family history of cardiac disease. - History of Current Complaint Chief Complaint: EDChestPainROMI Time Seen by Provider: 03/12/19 19:49 Pain Intensity: 2 - Additional Pertinent History Primary Care Physician: [id number] - Allergy/Home Medications Allergies/Adverse Reactions: Allergies Allergy/AdvReac Type Severity Reaction Status Date / Time No Known Allergies Allergy Verified 03/12/19 19:41 Home Medications: Home Medications NK [No Home Medications Reported] 03/12/19 [History Confirmed 03/12/19] PMH/Surg Hx/FS Hx/Imm Hx Endocrine/Hematology History: Denies: Hx Anticoagulant Therapy Cardiovascular History: Denies: Hx Cardiac Arrest History: Denies: Hx Dialysis Sensory History: Reports: Hx Contacts or Glasses Denies: Hx Hearing Aid Opthamlomology History: Reports: Hx Contacts or Glasses Neurological History: Denies: Hx CVA - Surgical History Surgery Procedure, Year, and Place: no prior surgeries. Hx Anesthesia Reactions: No Infectious Disease History: No Infectious Disease History: Denies: Traveled Outside the [place] in Last 30 Days - Family History Known Family History: Negative: Hypertension - Social History Alcohol Use: Occasionally Substance Use Type: Reports: Marijuana Smoking Status (MU): Never Smoked Tobacco Review of Systems Negative: Fever Negative: Chest Pain Negative: Shortness Of Breath Negative: dysuria All Other Systems Reviewed And Are Negative: Yes Physical Exam Triage Information Reviewed: Yes Vital Signs On Initial Exam: Initial Vitals Temp Pulse Resp BP Pulse Ox 97.9 F 102 18 160/86 100 03/12/19 18:20 03/12/19 18:20 03/12/19 18:20 03/12/19 18:20 03/12/19 18:20 Vital Signs Reviewed: Yes Appearance: Positive: Well-Appearing Skin: Positive: Warm, Dry Head/Face: Positive: Normal Head/Face Inspection Eyes: Positive: Normal, Conjunctiva Clear ENT: Positive: Pharynx normal Respiratory/Lung Sounds: Positive: Clear to Auscultation, Breath Sounds Present Cardiovascular: Positive: Normal, RRR Abdomen Description: Positive: Nontender, Soft Bowel Sounds: Positive: Present Musculoskeletal: Positive: Normal Neurological: Positive: Normal Psychiatric: Positive: Normal Procedures - Sedation Patient Received Moderate/Deep Sedation with Procedure: No Diagnostics - Vital Signs Vital Signs Temp Pulse Resp BP Pulse Ox 03/12/19 18:20 97.9 F 102 18 160/86 100 - Laboratory Lab Results: Lab Results 03/12/19 03/12/19 03/12/19 Range/Units 18:59 18:59 18:59 WBC 10.7 (3.5-10.8) 10^3/uL RBC 4.80 (4.18-5.48) 10^6 /uL Hgb 15.7 (14.0-18.0) g/dL Hct 44 (42-52) % MCV 92 (80-94) fL MCH 33 H (27-31) pg MCHC 35 (31-36) g/dL RDW 12 (10-15) % Plt Count 281 (150-450) 10^3/uL MPV 8.0 (7.4-10.4) fL Neut % (Auto) 56.6 % Lymph % (Auto) 34.3 % [place] % (Auto) 5.7 % Eos % (Auto) 2.4 % Baso % (Auto) 1.0 % Absolute Neuts (auto) 6.1 (1.5-7.7) 10^3/ul Absolute Lymphs (auto) 3.7 (1.0-4.8) 10^3/ul Absolute Monos (auto) 0.6 (0-0.8) 10^3/ul Absolute Eos (auto) 0.3 (0-0.6) 10^3/ul Absolute Basos (auto) 0.1 (0-0.2) 10^3/ul Absolute Nucleated RBC 0.0 10^3/ul Nucleated RBC % 0.1 INR (Anticoag Therapy) 0.99 (0.82-1.09) Sodium 135 (135-145) mmol/L Potassium 4.1 (3.5-5.0) mmol/L Chloride 99 L (101-111) mmol/L Carbon Dioxide 28 (22-32) mmol/L Anion Gap 8 (2-11) mmol/L BUN 14 (6-24) mg/dL Creatinine 0.97 (0.67-1.17) mg/dL Est GFR ( Amer) 113.2 (>60) Est GFR (Non-Af Amer) 93.6 (>60) BUN/Creatinine Ratio 14.4 (8-20) Glucose 102 H (70-100) mg/dL Calcium 9.6 (8.6-10.3) mg/dL Total Bilirubin 0.50 (0.2-1.0) mg/dL AST 15 (13-39) U/L ALT 28 (7-52) U/L Alkaline Phosphatase 61 (34-104) U/L Troponin I 0.01 (<0.03) ng/mL Total Protein 7.5 (6.4-8.9) g/dL Albumin 4.8 (3.2-5.2) g/dL Globulin 2.7 (2-4) g/dL Albumin/Globulin Ratio 1.8 (1-3) Result Diagrams: 03/12/19 18:59 03/12/19 18:59 Lab Statement: Any lab studies that have been ordered have been reviewed, and results considered in the medical decision making process. - Radiology chest Radiology Interpretation Completed By: ED Physician Summary of Radiographic Findings: no acute process - EKG No standard instances Cardiac Rate: NL EKG Rhythm: Sinus Rhythm EKG Comparison: No Significant Change Summary of EKG Findings: sinus rhythm Chest Pain Course/Dx - Course Course Of Treatment: 28 year old male presents with chest pain on Tuesday. He states that he was having sex and ended up loosing his erection when he developed the chest pain. States it was sharp on the left side of his chest. the chest pain lasted an hour. Denies any shortness breath. did not change when he took a deep breath. He states he was sick with a cold about a week ago. States that he is not having any cough. No nausea vomiting. No abdominal pain. He does not currently have a chest pain. He has not had in 2 days. He states that he has been loosing his erection for the past months. Denies any urinary symptoms. No testicular pain. No flank pain. Is not on any medications. Has no medical conditions. Does have family history of cardiac disease. On exam nontender abdomen. Nontender chest wall. EKG shows sinus rhythm. Chest x-ray normal. lab work without significant abnormality. Troponin is 0.01. not currently having chest pain. Will follow-up with primary about chest pain. Give urology referral about erectile dysfunction. Patient understands and agrees with the plan. - Chest Pain Differential Diagnosis/HQI/PQRI: Angina, Chest Wall, Lower Respiratory Infection - Diagnoses Provider Diagnoses: Chest pain Discharge ED - Sign-Out/Discharge Documenting (check all that apply): Patient Departure - Discharge Plan Condition: Good Disposition: HOME Patient Education Materials: Chest Wall Pain (ED) Referrals: Tong Billings MD [Primary Care Provider] - Chris Mcduffie MD [Medical Doctor] - Additional Instructions: Take ibuprofen or Tylenol every 6 hours as needed for pain a referral was given to urology Follow up with primary within 5 days Return to ED if develop any new or worsening symptoms - Billing Disposition and Condition Condition: GOOD Disposition: Home
[2019-03-12 21:10] VITALS: BP 141/76
== END 2019-03-12 21:00 | disposition home or self-care (01) ==
LOC: ED 18:16
DX: R07.9 Chest pain, unspecified (principal)
CPT/HCPCS: 36415; 71046; 80053; 84484; 85025; 85610; 93005; 99282